=== PATIENT | female | born 1950 | race Hispanic/Latino ===

== ENCOUNTER 2016-05-15 09:23 | Outpatient (CLI) | payer OTHER ==
--- NOTE | 2016-05-15 13:07 | Mammography Report ---
BILATERAL MAMMOGRAM with CAD: HISTORY: Cancer screening. FINDINGS: There are scattered fibroglandular densities (approximately 25%-50% glandular). No mass, distortion, suspicious calcification, or skin change is seen. IMPRESSION: Negative mammogram. There is no mammographic evidence of malignancy. RECOMMENDATION: Follow-up per ACS guidelines. BI-RADS CATEGORY: 1 = Negative ACR BI-RADS MAMMOGRAPHIC CODES: 0 = Needs additional imaging evaluation; 1 = Negative; 2 = Benign; 3 = Probably benign; 4 = Suspicious; 5 = Malignant; 6 = Known biopsy-proven malignancy COMMENT: 1. Dense breast tissue, i.e., adenosis, fibrocystic changes, etc., may obscure an underlying neoplasm. 2. Approximately 10% of cancers are not detected with mammography. 3. A negative mammography report should not delay biopsy if a clinically suspicious mass is present. COMMENT: [facility] follow-up letters [facility].
== END 2016-05-15 09:24 | disposition home or self-care (01) ==
LOC: SPVWC 09:23
PROVIDERS: ATTEND Internal Medicine
DX: Z12.31 Encounter for screening mammogram for malignant neoplasm of breast (principal)
CPT/HCPCS: 77067; G0202

== ENCOUNTER 2017-08-21 06:21 | Observation (INO) | payer MEDICARE, OTHER ==
[2017-08-21] MEDS ORDERED: ECOTRIN PO ONE (07:52)
[2017-08-21] MEDS ORDERED: PLAVIX PO ONE (07:55)
[2017-08-21] MEDS ORDERED: NACL 0.9% 500 ML 500 ML ONE (07:56)
[2017-08-21] MEDS ORDERED: NACL 0.9% 500 ML 500 ML IV SCH (08:00)
[2017-08-21 08:27] LABS: Basophils % (Auto) 0.7 % (0.0-1.8); Eosinophils # (Auto) 0.1 K/mm3 (0.0-0.4); Eosinophils % (Auto) 1.2 % (0.0-4.3); Hematocrit 41.1 % (30.3-42.9); Hemoglobin 13.6 gm/dl (10.1-14.3); Lymphocytes # (Auto) 2.1 K/mm3 (1.2-5.4); Lymphocytes % (Auto) 31.2 % (13.4-35.0); Mean Corpuscular HGB Conc 33 % (30-34); Mean Corpuscular Hemoglobin 30 pg (28-32); Mean Corpuscular Volume 91 fl (79-97); Monocytes # (Auto) 0.7 K/mm3 (0.0-0.8); Monocytes % (Auto) 9.5 % (0.0-7.3); Platelet Count 191 K/mm3 (140-440); Red Blood Count 4.52 M/mm3 (3.65-5.03); Red Cell Distribution Width 13.7 % (13.2-15.2)
[2017-08-21 08:37] LABS: INR 0.92 (0.87-1.13)
[2017-08-21 08:42] LABS: BUN/Creatinine Ratio 22; Blood Urea Nitrogen 13 mg/dL (7-17); Hemolysis Index 149
[2017-08-21] MEDS ORDERED: HEPARIN/NS 5000 UNIT/500ML(CATH LAB) 1,000 ML IR ONE (09:22)
[2017-08-21] MEDS ORDERED: HEPARIN 10,000 UNITS/10 ML ONE (09:23)
[2017-08-21] MEDS ORDERED: CALAN ONE (09:23)
[2017-08-21] MEDS: SUBLIMAZE ONE ×2 (09:59→10:00)
[2017-08-21] MEDS: XYLOCAINE 2% INFILTRATI ONE ×2 (09:59→10:02)
[2017-08-21] MEDS: VERSED ONE ×2 (09:59→10:00)
[2017-08-21] MEDS: NITROGLYCERIN SYRINGE 3 ML ONE ×2 (10:05→10:28)
[2017-08-21] MEDS ORDERED: NACL 0.9% 50 ML ONE (10:15)
[2017-08-21] MEDS: ANGIOMAX IV ONE ×2 (10:22→10:25)
[2017-08-21] MEDS ORDERED: ALUM-MAG HYDROX-SIMETH 200-200-20MG/5ML ONE (10:45)
[2017-08-21] MEDS ORDERED: EFFIENT PO ONE (10:45)
[2017-08-21] MEDS ORDERED: AMBIEN PO PRN (12:04)
--- NOTE | 2017-08-21 12:52 | Cardiac Catherization Report ---
CARDIAC CATHETERIZATION REFERRING PHYSICIAN: Avery Hernández MD DATE OF SERVICE: 08/21/2017 INDICATION FOR PROCEDURE: The patient is a very pleasant 67-year-old female with a history of coronary artery disease, coronary artery bypass surgery, PCI of RCA, recurrent chest pain, abnormal stress test, optimized antianginal medications, referred for left heart catheterization. Risks, benefits, and potential alternatives were explained in length prior to obtaining informed consent. PROCEDURE IN DETAIL: The patient was brought to catheterization lab in a postabsorptive state. He was prepped and draped in sterile fashion. An 8 mL of 2% lidocaine was used to anesthetize the right groin. A standard 6-Setswana sheath was used to cannulate the right common femoral artery via modified Seldinger technique. All exchanges were performed to exchange a J-tip guidewire. JL3.5 catheter was used to engage the left main, no dampening or ventricularization. Cineangiography was performed in all projections. JR4 catheter was used to cross the aortic valve. Under fluoroscopic guidance, left ventriculography was performed in [address] [place] and [place] projections via hand injections, catheter flushed, manual pullback performed with continuous pressure monitoring. Catheter was used to engage the right coronary. No dampening or vegetations. Angiography was performed in all projections. Next, catheter was removed from the body wire. Next, a JR4 catheter was used to engage the left subclavian. Selective angiography of the ANGUIANO was performed in multiple projections. Next, catheter was removed from the left subclavian carefully over wire. I directly supervised the administration of moderate sedation from 10:00 a.m. to 10:42 a.m. DATA: Aortic pressure is 110/50, LV pressure is 110, LVEDP of 16 mmHg. Left ventriculography revealed normal systolic performance with estimated ejection fraction of 55% -60%, no aortic stenosis. CORONARY ANATOMY: This is a right dominant system. Left main is short, essentially dual ostia left circumflex is without significant disease, diminutive LAD, moderate sized vessel, courses through the anterior interventricular groove, wraps around the apex. There is a complex 90% calcific stenosis proximally, mid segment, a tubular small vessel, 80% stenosis, and a chronic total occlusion just distal to this lesion in the distal segment of the mid LAD, ANGUIANO to LAD is widely patent in the distal segment of the mid or proximal segment of the distal LAD. The right coronary is widely patent. Stent in the right coronary, the stent previously placed in the right coronary is widely patent. No obstructive disease noted. At this point, due to recurrent angina despite multiple anginal medications, apical ischemia on stress test, we proceeded with PCI of the proximal LAD. The mid and distal LAD is protected by the ANGUIANO, but the proximal LAD with its multiple diagonal tributaries are unprotected and thus is ischemic. I believe this is the culprit lesion. Angiomax was given, EBU 3.75 guide used to engage the LAD without difficulty. A [place] wire was used to cross the lesion without difficulty. Angiomax was given, abnormal ACT confirmed, Effient, aspirin. We used a 2.5 x 12 balloon to predilate the lesion. A 3.0 x 15 Resolute Integrity drug-eluting stent was placed at 12 SAY for 30 seconds, excellent angiographic result. Intravascular ultrasound was performed, multiple passes were made. Intravascular ultrasound reveals a well approached and well expanded stent. Final angiogram reveals excellent result. CONCLUSIONS: 1. Severe [place] coronary artery disease as aforementioned. 1. A 90% proximal LAD stenosis in the setting of recalcitrant chest pain despite multiple anginal medications and anterior and anterolateral ischemia on stress test. 2. Successful IVUS-guided PCI with placement of a drug-eluting stent (Resolute 3.0 x 15) with excellent final angiographic and ultrasonographic results. 3. Chronic total occlusion of the distal segment of the mid LAD. 4. Patent ANGUIANO to LAD. 5. No obstructive disease is identified in the left circumflex. 6. Patent stent in the right coronary without obstructive disease. 7. Preserved left ventricular systolic performance, estimated ejection fraction of 55-60%. 8. ____ aortic stenosis. 9. Normal LVEDP. 10. Results of the procedure were explained to the patient and family. All questions and concerns were addressed. The patient is clinically stable, chest pain free. Effient, aspirin and statin, post-sheath in 2 hours, a standard Groin care as anticipate discharge tomorrow. JOB# [id number] SBM/NTS
[2017-08-21] MEDS ORDERED: ULTRAM ONE ×2 (14:18→14:34)
[2017-08-21] MEDS ORDERED: ULTRAM PO ONE (14:32)
[2017-08-21] MEDS ORDERED: ZOFRAN IV ONE (14:32)
[2017-08-21] MEDS ORDERED: ZOFRAN ONE (14:34)
[2017-08-22 06:06] LABS: Basophils % (Auto) 0.6 % (0.0-1.8); Eosinophils # (Auto) 0.1 K/mm3 (0.0-0.4); Eosinophils % (Auto) 0.6 % (0.0-4.3); Hematocrit 40.4 % (30.3-42.9); Hemoglobin 13.7 gm/dl (10.1-14.3); Lymphocytes # (Auto) 1.9 K/mm3 (1.2-5.4); Lymphocytes % (Auto) 23.2 % (13.4-35.0); Mean Corpuscular HGB Conc 34 % (30-34); Mean Corpuscular Hemoglobin 31 pg (28-32); Mean Corpuscular Volume 91 fl (79-97); Monocytes # (Auto) 0.6 K/mm3 (0.0-0.8); Monocytes % (Auto) 7.1 % (0.0-7.3); Platelet Count 185 K/mm3 (140-440); Red Blood Count 4.42 M/mm3 (3.65-5.03); Red Cell Distribution Width 13.7 % (13.2-15.2)
[2017-08-22 06:30] LABS: Creatine Kinase MB 5.1 ng/mL (0.0-4.0)
[2017-08-22 06:32] LABS: BUN/Creatinine Ratio 16; Blood Urea Nitrogen 11 mg/dL (7-17); Calcium 9.2 mg/dL (8.4-10.2); Hemolysis Index 3
[2017-08-22 06:44] LABS: HDL Cholesterol 32 mg/dL (40-59); LDL Cholesterol,Direct 76 mg/dL (50-130)
--- NOTE | 2017-08-22 08:18 | XRay Report ---
PORTABLE CHEST INDICATION: Post PCI. COMPARISON: None similar. FINDINGS: Portable, frontal chest radiograph demonstrates normal cardiomediastinal silhouette. Clear lungs. EKG leads. Left mid clavicular possible old healed fracture. CONCLUSION: No acute chest process, as described. Thank you for the opportunity to participate in this patient's care.
[2017-08-22 09:26] VITALS: BP 135/56
[2017-08-22] MEDS ORDERED: BABY ASPIRIN PO SCH (10:00)
[2017-08-22] MEDS ORDERED: TOPROL XL PO SCH (10:00)
[2017-08-22] MEDS ORDERED: EFFIENT PO SCH (10:00)
[2017-08-22] MEDS ORDERED: IMDUR PO SCH (10:00)
--- NOTE | 2017-08-22 10:55 | Short Stay Summary ---
Short Stay Documentation Date of service: 08/22/17 - History H&P: obtained from office - Allergies and Medications Current Medications: Allergies acetaminophen [From Percocet] Allergy (Intermediate, Verified 01/13/15 11:47) Nausea oxycodone HCl [From Percocet] Allergy (Intermediate, Verified 01/13/15 11:47) Nausea codeine Allergy (Verified 01/13/15 11:47) Nausea Home Medications Medication Instructions Recorded Confirmed Last Taken Type Aspirin EC [Aspirin Enteric Coated 325 mg PO DAILY 10/08/14 08/21/17 08/20/17 History TAB] Metoprolol [Lopressor TAB] 50 mg PO BID 10/08/14 08/21/17 08/21/17 05:30 History Zolpidem [Ambien] 5 mg PO HS PRN 10/08/14 08/21/17 08/20/17 History Atorvastatin Calcium [Lipitor] 20 mg PO QHS 12/08/14 08/21/17 08/20/17 History Clopidogrel Bisulfate [Plavix] 75 mg PO DAILY 12/08/14 08/21/17 08/20/17 History ISOSORBIDE MONOnitrate [Imdur ER] 30 mg PO DAILY 08/21/17 08/21/17 08/16/17 History valACYclovir [Valtrex] 500 mg PO TID 08/21/17 08/21/17 08/20/17 History Active Medications Aspirin (Baby Aspirin) 81 mg PO QDAY DONNY Atorvastatin Calcium (Lipitor) 40 mg PO QHS [facility] Last Admin: 08/21/17 21:26 Dose: 40 mg Isosorbide Mononitrate (Imdur) 30 mg PO DAILY [facility] Metoprolol Succinate (Toprol Xl) 50 mg PO QDAY DONNY Prasugrel (Effient) 10 mg PO QDAY DONNY Zolpidem Tartrate (Ambien) 5 mg PO HS PRN PRN Reason: Insomnia Last Admin: 08/21/17 21:26 Dose: 5 mg - Physical exam General appearance: no acute distress Integumentary: no rash, no growths, no abnormal pigmentation HEENT: Atraumatic, PERRLA Lungs: Clear to auscultation Heart: Regular rate, Normal S1, Normal S2 Gastrointestinal: normal, normoactive bowel sounds Extremities: no ischemia, pulses intact, pulses symmetrical, No edema, normal temperature, normal color Neurological: Normal gait, Normal speech, Strength at 5/5 X4 ext - Brief post op/procedure progress note Date of procedure: 08/21/17 Pre-op diagnosis: CAD Post-op diagnosis: same Procedure: LHC with PCI - see dictated cath report Anesthesia: local Estimated blood loss: none Condition: stable - Hospital course Hospital course: Pt presented for scheduled elective LHC with PCI of LAD. She was admitted for observation overnight. She remained stable overnight and is medically stable for discharge home today. - Disposition Condition at discharge: Stable Disposition: DC-01 TO HOME OR SELFCARE - Discharge Diagnoses (1) CAD (coronary artery disease) Status: Chronic (2) Stented coronary artery Status: Chronic (3) Hx of CABG Status: Chronic Short Stay Discharge Plan Activity: advance as tolerated Diet: low fat, low cholesterol, low salt Wound: open to air, keep clean and dry, per your surgeon's advice Follow up with: MARGRET HASKINS MD [Primary Care Provider] - 7 Days FATOU IVEY MD [Staff Physician] - 7 Days ([facility], 08/29/2017 @ 1: 45PM) Prescriptions: AtorvaSTATin [Lipitor] 40 mg PO QHS #30 tablet Prasugrel [Effient] 10 mg PO QDAY #30 tablet
== END 2017-08-22 14:00 | disposition home or self-care (01) ==
LOC: CATHLABREC 06:21 → 4A 10:59
PROVIDERS: ADMIT Internal Medicine; ATTEND Internal Medicine
DX: I25.10 Atherosclerotic heart disease of native coronary artery without angina pectoris (principal)
CPT/HCPCS: 36415; 71045; 80048; 80061; 82550; 82553; 84484; 85025; 85347; 85610; 85730; 92978; 93005; 93010; 93458; 96374; A9270; C1725; C1753; C1769; C1874; C1887; C1894; C9600; G0378; J0583; J1644; J2250; J2405; J3010; J7040; 92928; Q9967

== ENCOUNTER 2017-08-25 22:50 | Emergency (ER) | payer MEDICARE ==
[2017-08-26 00:27] LABS: Basophils # (Auto) 0.1 K/mm3 (0.0-0.1); Basophils % (Auto) 0.7 % (0.0-1.8); Eosinophils # (Auto) 0.1 K/mm3 (0.0-0.4); Eosinophils % (Auto) 1.1 % (0.0-4.3); Hematocrit 36.4 % (30.3-42.9); Hemoglobin 12.3 gm/dl (10.1-14.3); Lymphocytes # (Auto) 2.8 K/mm3 (1.2-5.4); Mean Corpuscular HGB Conc 34 % (30-34); Mean Corpuscular Hemoglobin 31 pg (28-32); Mean Corpuscular Volume 92 fl (79-97); Monocytes # (Auto) 0.7 K/mm3 (0.0-0.8); Platelet Count 206 K/mm3 (140-440); Red Blood Count 3.97 M/mm3 (3.65-5.03); Red Cell Distribution Width 13.6 % (13.2-15.2)
[2017-08-26 01:00] LABS: BUN/Creatinine Ratio 21; Blood Urea Nitrogen 15 mg/dL (7-17); Calcium 10.2 mg/dL (8.4-10.2); Hemolysis Index 6
[2017-08-26] MEDS ORDERED: LOVENOX SUB-Q ONE (02:10)
[2017-08-26] MEDS ORDERED: ULTRAM PO ONE (02:34)
--- NOTE | 2017-08-26 02:34 | Emergency Department Report ---
HPI - General Chief Complaint: Extremity Injury, Lower Time Seen by Provider: 08/26/17 01:57 - HPI HPI: 67-year-old female presents to the emergency department with a complaint of right thigh pain that has been going on for the past 3 or 4 days since she had a cardiac catheterization done. For that they went into the right groin and she had a stent placed. She denies any numbness or restriction to range of motion but says that it feels "heavy" along with the pain which is towards the groin in the inner thigh. She denies any rash, obvious swelling. She called her white sugar pan tank operator, Dr. Cook, and was told to come to the emergency Department to rule out a DVT. She also has a past medical history of arthritis , GERD, hypertension. She tried some ibuprofen for her discomfort without much relief. ED Past Medical Hx - Past Medical History Previous Medical History?: Yes Hx Hypertension: Yes Hx Heart Attack/AMI: No Hx Congestive Heart Failure: No Hx Diabetes: No Hx GERD: Yes Hx Arthritis: Yes Hx HIV: No - Surgical History Past Surgical History?: Yes Hx Coronary Stent: Yes (x1) - Social History Smoking Status: Never Smoker Substance Use Type: None - Medications Home Medications: Home Medications Medication Instructions Recorded Confirmed Last Taken Type Zolpidem [Ambien] 5 mg PO HS PRN 10/08/14 08/21/17 08/20/17 History ISOSORBIDE MONOnitrate [Imdur ER] 30 mg PO DAILY 08/21/17 08/21/17 08/16/17 History valACYclovir [Valtrex] 500 mg PO TID 08/21/17 08/21/17 08/20/17 History Aspirin [Aspirin BABY CHEW TAB] 81 mg PO QDAY tab.chew 08/22/17 Unknown Rx AtorvaSTATin [Lipitor] 40 mg PO QHS #30 tablet 08/22/17 Unknown Rx Metoprolol Xl [Metoprolol 50 mg PO QDAY tablet 08/22/17 Unknown Rx SUCCINATE ER TAB] Prasugrel [Effient] 10 mg PO QDAY #30 tablet 08/22/17 Unknown Rx traMADol [Ultram 50 MG tab] 50 mg PO Q6HR PRN #10 tablet 08/26/17 Unknown Rx ED Review of Systems ROS: Stated complaint: LEG PAIN Other details as noted in HPI Comment: All other systems reviewed and negative Constitutional: denies: chills, fever Eyes: denies: eye pain, eye discharge, vision change ENT: denies: ear pain, throat pain Respiratory: denies: cough, shortness of breath, wheezing Cardiovascular: denies: chest pain, palpitations Gastrointestinal: denies: abdominal pain, nausea, diarrhea Genitourinary: denies: urgency, dysuria, discharge Musculoskeletal: arthralgia, myalgia Skin: denies: rash, lesions Neurological: denies: headache, weakness, paresthesias Physical Exam - Physical Exam Vital Signs: Vital Signs 08/25/17 23:18 Temperature 98.7 F Pulse Rate 76 Respiratory 14 Rate Blood Pressure 122/62 O2 Sat by Pulse 95 Oximetry Physical Exam: GENERAL: The patient is well-developed well-nourished. HENT: Normocephalic. Atraumatic. Patient has moist mucous membranes. EYES: Extraocular motions are intact. Pupils equal reactive to light bilaterally. NECK: Supple. Trachea is midline. CHEST/LUNGS: Clear to auscultation. There is no respiratory distress noted. HEART/CARDIOVASCULAR: Regular. There is no tachycardia. There is no murmur. ABDOMEN: Abdomen is soft, nontender. Patient has normal bowel sounds. There is no abdominal distention. SKIN: Skin is warm and dry. NEURO: The patient is awake, alert, and oriented. The patient is cooperative. The patient has no focal neurologic deficits. The patient has normal speech. MUSCULOSKELETAL: There is some tenderness to palpation to the left upper thigh but no obvious deformity. There is no limitation range of motion. ED Course Vital Signs 08/25/17 23:18 Temperature 98.7 F Pulse Rate 76 Respiratory 14 Rate Blood Pressure 122/62 O2 Sat by Pulse 95 Oximetry ED Medical Decision Making - Lab Data Result diagrams: 08/26/17 00:03 08/26/17 00:03 - Medical Decision Making Patient came in with a complaint of a 4-5 day history of right upper thigh pain since her cardiac catheterization was basically sent in to get a venous Doppler to rule out a DVT. However on a Sunday night we are unable to get a venous Doppler done. The labs obtained were mostly unremarkable. Vital signs stable throughout her ED course. She had a slight elevation in her potassium level and she has been encouraged to follow up for a repeat level with her primary care physician or white sugar pan tank operator. She was given a dose of Lovenox here in the emergency department and has been set up to return to the emergency department later today, Sunday, to get the venous Doppler done. If negative, she will be encouraged to follow-up with PCP and cardiology. If positive, she will be redirected to the emergency department for further anticoagulation. - Differential Diagnosis muscle spasm, groin strain, DVT, cellulitis Critical Care Time: No Critical care attestation.: If time is entered above; I have spent that time in minutes in the direct care of this critically ill patient, excluding procedure time. ED Disposition Clinical Impression: Right thigh pain, Post procedure discomfort Disposition: TO HOME OR SELFCARE Is pt being admited?: No Condition: Stable Additional Instructions: You will be contacted later today, Sunday, regarding what time to return to the hospital for your right lower extremity venous Doppler ultrasound. This ultrasound will be used to try and rule out or rule in a DVT/blood clot in the leg. If positive, he will be redirected back to the emergency department for anticoagulation. If negative, you should follow up with your primary care physician and white sugar pan tank operator. Return to the emergency department with any worsening of your symptoms or any acute distress. You have been prescribed a medication that is sedating and therefore should not be taken prior to driving, working, and responsible for children and in no way should be mixed with alcohol of any quantity. Prescriptions: traMADol [Ultram 50 MG tab] 50 mg PO Q6HR PRN #10 tablet PRN Reason: Pain Referrals: MAGRRET HASKINS MD [Primary Care Provider] - 3-5 Days ILEANA COOK MD [Staff Physician] - 3-5 Days Time of Disposition: 02:45
[2017-08-26 03:06] VITALS: BP 111/50
== END 2017-08-26 03:21 | disposition home or self-care (01) ==
LOC: ED 22:50
DX: M79.651 Pain in right thigh (principal); I10 Essential (primary) hypertension; K21.9 Gastro-esophageal reflux disease without esophagitis; M19.90 Unspecified osteoarthritis, unspecified site
CPT/HCPCS: 36415; 80048; 82550; 85025; 96372; 99283; J1650

== ENCOUNTER 2017-08-26 10:56 | Emergency (ER) | payer MEDICARE ==
[2017-08-26] MEDS ORDERED: TYLENOL PO ONE (13:59)
--- NOTE | 2017-08-26 14:17 | Emergency Department Report ---
ED Extremity Problem HPI - General Chief complaint: Extremity Problem,Nontraumatic Time Seen by Provider: 08/26/17 12:40 Source: patient Mode of arrival: Ambulatory Limitations: No Limitations - History of Present Illness Initial comments: 67-year-old woman with persistent heaviness and discomfort in her leg 5 days after having cardiac catheterization in that extremity. She was seen here earlier in the emergency department, and referred back for possible DVT. That examination was performed by duplex Doppler here, shortly prior to emergency department visit, and was referred for further evaluation after having been found to have incidental finding of an arteriovenous malformation. Exam was negative for DVT. Patient has heaviness in the extremity, but is not cool, she has been able ambulate on it, has good muscular tone. She has no other symptoms , no chest pain. Onset/Timin -: Gradual, days(s) Location: right, lower extremity History of Same: No Radiation: other (along medial proximal right leg) Severity scale (0 -10): 2 Quality: other (heaviness) Consistency: constant (heaviness) Improves with: nothing Worsens with: nothing Associated Symptoms: denies other symptoms - Related Data Home Medications Medication Instructions Recorded Confirmed Last Taken Zolpidem [Ambien] 5 mg PO HS PRN 10/08/14 08/21/17 08/20/17 ISOSORBIDE MONOnitrate [Imdur ER] 30 mg PO DAILY 08/21/17 08/21/17 08/16/17 valACYclovir [Valtrex] 500 mg PO TID 08/21/17 08/21/17 08/20/17 Previous Rx's Medication Instructions Recorded Last Taken Type Aspirin [Aspirin BABY CHEW TAB] 81 mg PO QDAY tab.chew 08/22/17 Unknown Rx AtorvaSTATin [Lipitor] 40 mg PO QHS #30 tablet 08/22/17 Unknown Rx Metoprolol Xl [Metoprolol 50 mg PO QDAY tablet 08/22/17 Unknown Rx SUCCINATE ER TAB] Prasugrel [Effient] 10 mg PO QDAY #30 tablet 08/22/17 Unknown Rx traMADol [Ultram 50 MG tab] 50 mg PO Q6HR PRN #10 tablet 08/26/17 Unknown Rx Allergies Allergy/AdvReac Type Severity Reaction Status Date / Time acetaminophen [From Percocet] Allergy Intermediate Nausea Verified 01/13/15 11: 47 oxycodone HCl [From Percocet] Allergy Intermediate Nausea Verified 01/13/15 11: 47 codeine Allergy Nausea Verified 01/13/15 11:47 ED Review of Systems ROS: Stated complaint: Other details as noted in HPI Comment: All other systems reviewed and negative ENT: denies: ear pain, throat pain Respiratory: denies: cough, shortness of breath, wheezing Cardiovascular: denies: chest pain, palpitations Gastrointestinal: denies: abdominal pain, nausea, diarrhea Musculoskeletal: denies: back pain, joint swelling, arthralgia Skin: denies: rash, lesions Neurological: denies: headache, weakness, paresthesias Psychiatric: denies: anxiety, depression Hematological/Lymphatic: denies: easy bleeding, easy bruising ED Past Medical Hx - Past Medical History Hx Hypertension: Yes Hx Heart Attack/AMI: No Hx Congestive Heart Failure: No Hx Diabetes: No Hx GERD: Yes Hx Arthritis: Yes Hx HIV: No - Surgical History Hx Coronary Stent: Yes (x2) - Social History Smoking Status: Never Smoker Substance Use Type: Alcohol - Medications Home Medications: Home Medications Medication Instructions Recorded Confirmed Last Taken Type Zolpidem [Ambien] 5 mg PO HS PRN 10/08/14 08/21/17 08/20/17 History ISOSORBIDE MONOnitrate [Imdur ER] 30 mg PO DAILY 08/21/17 08/21/17 08/16/17 History valACYclovir [Valtrex] 500 mg PO TID 08/21/17 08/21/17 08/20/17 History Aspirin [Aspirin BABY CHEW TAB] 81 mg PO QDAY tab.chew 08/22/17 Unknown Rx AtorvaSTATin [Lipitor] 40 mg PO QHS #30 tablet 08/22/17 Unknown Rx Metoprolol Xl [Metoprolol 50 mg PO QDAY tablet 08/22/17 Unknown Rx SUCCINATE ER TAB] Prasugrel [Effient] 10 mg PO QDAY #30 tablet 08/22/17 Unknown Rx traMADol [Ultram 50 MG tab] 50 mg PO Q6HR PRN #10 tablet 08/26/17 Unknown Rx ED Physical Exam - General Limitations: No Limitations General appearance: alert, in no apparent distress - Head Head exam: Present: atraumatic - Eye Eye exam: Present: PERRL, EOMI - ENT ENT exam: Present: normal exam - Neck Neck exam: Present: normal inspection, tenderness - Respiratory Respiratory exam: Present: normal lung sounds bilaterally - Cardiovascular Cardiovascular Exam: Present: regular rate, normal heart sounds - GI/Abdominal GI/Abdominal exam: Present: soft, normal bowel sounds. Absent: tenderness - Rectal Rectal exam: Present: deferred - Extremities Exam Extremities exam: Present: normal inspection, full ROM, tenderness (mild tenderness proximal medial aspect of right thigh, without edema, or ecchymosis) . Absent: pedal edema, joint swelling, calf tenderness - Neurological Exam Neurological exam: Present: alert, oriented X3, CN II-XII intact. Absent: motor sensory deficit - Psychiatric Psychiatric exam: Present: normal affect, normal mood - Skin Skin exam: Present: warm, dry. Absent: erythema, petechiae, pallor, abrasion, ecchymosis ED Course Vital Signs 08/26/17 12:19 Temperature 37.0 C Pulse Rate 64 Respiratory 18 Rate Blood Pressure 127/66 O2 Sat by Pulse 96 Oximetry - Consultations Consultation #1: 08/26/17 15:11 Dr. Garay, electroplating worker consulted, recommends admission and vascular consult , with admission through hospitalist. Consultation #2: 08/26/17 15:12 Dr. Dao consult, has come to see patient, reviewed findings, physical examination stable, and he feels patient can be evaluated on an outpatient basis. ED Medical Decision Making - Radiology Data Radiology results: report reviewed (duplex Doppler ultrasound examination of right lower extremity negative for venous thromboembolus in, but incidental note made of AVM from right superficial femoral to right greater saphenous vein. ) - Medical Decision Making Patient has unremarkable clinical examination, with normal-appearing extremity, normal strength and normal sensation, no evidence of bleeding, no swelling, contusion or mass, but with finding of AV malformation, possible fistula, an area where patient recently had catheterization. Examination by on-call hospitalist, Dr. Dao, who concurs with nocuous findings, and believe patient can be further evaluated on an outpatient basis, in the next 2-3 days. Family has been followed by vascular group, Dr. Barker, and can make arrangements to contact them. - Differential Diagnosis arteriovenous malformation, fistula, hematoma Critical Care Time: No Critical care attestation.: If time is entered above; I have spent that time in minutes in the direct care of this critically ill patient, excluding procedure time. ED Disposition Clinical Impression: Arteriovenous malformation, lower limb Disposition: DC-01 TO HOME OR SELFCARE Is pt being admited?: No Does the pt Need Aspirin: No Condition: Stable Additional Instructions: Examination today was negative for blood clots to the legs, but ultrasound examination suggest a arteriovenous malformation, or unusual connection between the arterial system and the venous system in your right leg, possibly as a result of urine catheterization. Physical examination today is stable, there is no signs of active bleeding, no mass, and evaluation by hospitalist is also negative, and we believe that you're stable for discharge home, and your findings can be evaluated on an outpatient basis with your electroplating worker, and your vascular surgeon, Dr. Barker. Contact her specialist tomorrow to make close follow-up appointment within 48- 72 hours, advising them of these findings, and need for close follow-up. You can be up and around, but recommend rest and general and limitation of activities while you are recuperating. Return to emergency department for any unusual symptoms, including increased pain, swelling of the extremity, severe coldness of extremity or loss of muscular use. Referrals: MARGRET HASKINS MD [Primary Care Provider] - 3-5 Days Time of Disposition: 15:17
[2017-08-26] MEDS ORDERED: FIORICET PO ONE (14:48)
--- NOTE | 2017-08-26 14:59 | Event Note ---
Date: 08/26/17 Patient evaluated for AVM in Rt Groin and Rt Thigh discomfort No signs of vasular insufficiency. Duplex scan reviewed. Patient has minimal symptoms and wants to follow with cardiology and Vascular surgery as outpatient Dis Dx AVM Rt Groin
[2017-08-26 15:42] VITALS: BP 105/78
--- NOTE | 2017-08-29 13:25 | Vascular Lab Report ---
Right Lower Extremity Venous Duplex Study: Reason for Exam: Pain and swelling of the right lower extremity. Comments on the Right: All veins visualized are freely compressible without evidence of internal echogenicity. Flow is spontaneous and phasic throughout. No evidence of acute or chronic thrombus is seen in any of the vessels visualized. There appears to be an arteriovenous connection between the proximal femoral arteries in the greater saphenous vein. Clinical correlation is recommended. Comments on the Left: A limited duplex study was done of the proximal veins of the left lower extremity. All veins visualized are freely compressible without evidence of internal echogenicity. Flow is spontaneous and phasic throughout. No evidence of acute or chronic thrombus is seen in any of the vessels visualized. Impression: No evidence of acute or chronic deep venous thrombosis in the right lower extremity. 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 Recommend further evaluation.
== END 2017-08-26 15:42 | disposition home or self-care (01) ==
LOC: VAS 10:56 → ED 10:56 → EDSTATUS 12:04 → ED 15:42
DX: Q27.39 Arteriovenous malformation, other site (principal); I10 Essential (primary) hypertension; K21.9 Gastro-esophageal reflux disease without esophagitis

== ENCOUNTER 2017-11-26 06:13 | Observation (INO) | payer MEDICARE ==
[2017-11-20 09:18] LABS: Basophils % (Auto) 0.7 % (0.0-1.8); Eosinophils # (Auto) 0.1 K/mm3 (0.0-0.4); Eosinophils % (Auto) 1.4 % (0.0-4.3); Hematocrit 39.2 % (30.3-42.9); Hemoglobin 13.2 gm/dl (10.1-14.3); Lymphocytes # (Auto) 1.6 K/mm3 (1.2-5.4); Lymphocytes % (Auto) 27.8 % (13.4-35.0); Mean Corpuscular HGB Conc 34 % (30-34); Mean Corpuscular Hemoglobin 30 pg (28-32); Mean Corpuscular Volume 90 fl (79-97); Monocytes # (Auto) 0.6 K/mm3 (0.0-0.8); Platelet Count 197 K/mm3 (140-440); Red Blood Count 4.34 M/mm3 (3.65-5.03); Red Cell Distribution Width 13.5 % (13.2-15.2)
[2017-11-20 09:31] LABS: BUN/Creatinine Ratio 13; Blood Urea Nitrogen 8 mg/dL (7-17); Calcium 9.5 mg/dL (8.4-10.2); Hemolysis Index 15
[2017-11-20 09:33] LABS: INR 0.95 (0.87-1.13)
--- NOTE | 2017-11-20 10:02 | Anesthesia Consultation ---
Anesthesia Consult and Med Hx Date of service: 11/20/17 - Airway Anesthetic Teeth Evaluation: Dentures (upper and lower) ROM Head & Neck: Adequate Mental/Hyoid Distance: Adequate Mallampati Class: Class II Intubation Access Assessment: Probably Good - Pre-Operative Health Status ASA Pre-Surgery Classification: ASA3 Proposed Anesthetic Plan: General - Cardiovascular System Hx Hypertension: Yes Hx Coronary Artery Disease: Yes (s/p CABG (2014)) Hx Heart Attack/AMI: No Hx Angina: No (high cholesterol) Hx Percutaneous Transluminal Coronary Angioplasty (PTCA): Yes (2014) - Central Nervous System Hx Psychiatric Problems: No - Gastrointestinal Hx Gastroesophageal Reflux Disease: Yes - Endocrine Hx Cirrhosis: Yes (liver enzymes elevated) - Other Systems Hx Cancer: Yes (skin- rt. shoulder)
[~2017-11-26 06:13] MED LIST: ANCEF/STERILE WATER 2 GM/20 ML 2 GM/20 ML SYRINGE IV NR; DILAUDID IV PRN; ZOFRAN IV PRN
[2017-11-26] MEDS: LACTATED RINGERS 1,000 ML IV SCH ×2 (06:50→21:34)
[2017-11-26] MEDS ORDERED: VERSED IV NR (07:00)
[2017-11-26] MEDS ORDERED: PEPCID IV NR (07:00)
[2017-11-26] MEDS ORDERED: DIPRIVAN 10 MG/ML IV ONE (07:34)
[2017-11-26] MEDS ORDERED: SUBLIMAZE ONE (07:36)
[2017-11-26] MEDS ORDERED: NACL ONE (07:36)
[2017-11-26] MEDS ORDERED: HEPARIN 10,000 UNITS/10 ML ONE (07:36)
[2017-11-26] MEDS ORDERED: RIFADIN ONE (07:37)
[2017-11-26] MEDS ORDERED: NACL 0.9% 500 ML 500 ML ONE (07:37)
[2017-11-26] MEDS ORDERED: MARCAINE 0.5% INFILTRATI ONE ×3 (07:40→09:10)
--- NOTE | 2017-11-26 07:40 | Anesthesia Day of Surgery ---
Anesthesia Day of Surgery - Day of Surgery Patient Examined: Yes Patient H&P Reviewed: Yes Patient is NPO: Yes Beta Blockers: Yes Cardiac Clearance: Yes (on chart with recent studies)
[2017-11-26] MEDS ORDERED: NITROGLYCERIN SYRINGE 0 ML ONE (08:10)
[2017-11-26] MEDS ORDERED: NACL 0.9% IR ONE (09:10)
[2017-11-26] MEDS ORDERED: HEPARIN 10,000 UNITS/10 ML 2,000 UNIT in NACL 0.9% 500 ML 500 ML IR ONE (10:04)
[2017-11-26] MEDS ORDERED: ZOFRAN ONE (10:41)
[2017-11-26] MEDS ORDERED: XYLOCAINE MPF 2% ONE (10:41)
[2017-11-26] MEDS ORDERED: ZEMURON IV ONE (10:41)
[2017-11-26] MEDS ORDERED: DECADRON ONE (10:41)
[2017-11-26] MEDS ORDERED: PROAIR IH ONE (10:42)
[2017-11-26] MEDS ORDERED: LACTATED RINGERS 1,000 ML ONE (10:42)
[2017-11-26] MEDS ORDERED: BLOXIVERZ ONE (11:08)
[2017-11-26] MEDS ORDERED: ROBINUL ONE (11:08)
[2017-11-26] MEDS ORDERED: AMBIEN PO PRN ×2 (11:14→22:00)
--- NOTE | 2017-11-26 11:14 | Operative Report ---
Operative Report Operative Report: Date of Procedure: 11/26/2017 Pre-operative Diagnosis: Right Femoral Arteriovenous Fistula Status Post Cardiac Cath Post-operative Diagnosis: Same Procedure(s): 1. Open Ligation of Traumatic Right Superficial Femoral Artery To Right Greater Saphenous Vein Arteriovenous Fistula Surgeon: Terry Welsh M.D. Dresser Tender: None Anesthesia: Gen. Endotracheal Anesthesia EBL: Minimal Counts: Correct Complications: None Condition: Stable Findings: There was a fistula between a branch of the right great saphenous vein and the proximal right superficial vein with an easily palpable thrill in the right common femoral vein there was no longer present after ligation of the AV fistula. Specimen: None Indication: The patient is a 67-year-old female with a history of coronary artery disease who had a cardiac cath proximally 6 months ago. She presented with complaints of leg heaviness that represented approximately one week after her initial procedure. She was diagnosed with a arteriovenous fistula on ultrasound. The initial management was conservative with observation in hopes that the fistula would spontaneously thrombose however after 6 months the fistula was still present so the decision was made to perform open ligation of the fistula. The patient was given the risk, benefits, and alternative procedures and consented to the procedure. Description of Procedure: The patient was brought into the operating room and laid in supine position. After general endotracheal anesthesia was achieved she was prepped and draped in normal sterile fashion. A longitudinal incision was created in the groin and carried down to the abdominal wall under sharp dissection. The common femoral artery was dissected out circumferentially and then controlled with Vesseloops. The dissection was carried down to the bifurcation of the SFA and profunda artery and at this point, the significant amount of scar tissue. It became obvious that this was the area of the likely AV fistula. I dissected the proximal profunda circumferentially and controlled this with a vessel loop. I then dissected out the SFA distal to this area of scar tissue and controlled with a vessel loop. I then systemically heparinized the patient with 3000 units of heparin IV. I then began to dissect the scar tissue until I was able to dissect out the branch of the saphenous vein down to the area of the connection. Once I was able to do this I released the vessel loops on tension to control flow within the artery and then clamped the vein on the venous side and ligated the fistula. I tied off the venous portion of the fistula with a 2-0 silk stitch. I then examined the arteriotomy which was approximately a 3 mm hole in the artery. I flushed out the arteriotomy with heparinized saline. I did leave a small cuff of the fistula to assist with the closure. I closed the arteriotomy using 6-0 Prolene in interrupted fashion. Prior to closing the arteriotomy I backbled the SFA as well as the profunda and allowed antegrade bleeding of the common femoral artery to flush any debris from the arteries. I then flushed the arteriotomy with heparinized saline. I then completed the closure of the arteriotomy and released all vessel loops to allow flow into the lower leg. The SFA had a palpable pulse distal to the closure. I interrogated the common femoral vein with a Doppler as well as palpation and it was no evidence of a thrill or bruit however it did augment with compression of the thigh. Hemostasis within the wound was achieved with a combination of quick clot and FloSeal. Once hemostasis was achieved the wound was anesthetized with 0.5% Marcaine and closed in 3 layers using a 3-0 Vicryl in running fashion to reapproximate the fascia, 3-0 Vicryl in running fashion the deep dermal layer, and 4-0 Monocryl in running fashion the subcuticular layer. Dermabond was then used to cover the skin. The patient tolerated the procedure well. All sponge, needle, and instrument counts were correct. The patient was taken to the recovery area in stable condition.
[2017-11-26] MEDS ORDERED: ZOFRAN IV PRN (11:15)
[2017-11-26] MEDS ORDERED: MORPHINE IV PRN (11:15)
[2017-11-26] MEDS ORDERED: SODIUM CHLORIDE FLUSH SYRINGE 10 ML IV PRN (11:15)
[2017-11-26] MEDS: ANCEF/NS 1 GM/50 ML 1 GM/50 ML BAG IV SCH ×2 (15:05→23:18)
--- NOTE | 2017-11-26 15:24 | Post Anesthesia Evaluation ---
- Post Anesthesia Evaluation Patient Participated: Yes Airway Patent: Yes Stable Respiratory Function: Yes Nausea/Vomiting: No Temp > 96.8F: Yes Pain Manageable: Yes Adequeate Hydration: Yes Anesthesia Complications: No
[2017-11-26] MEDS: NORCO 5/325 PO PRN (16:05)
[2017-11-26] MEDS: SODIUM CHLORIDE FLUSH SYRINGE 10 ML IV SCH (21:34)
[2017-11-27] MEDS: NORCO 5/325 PO PRN (08:08)
[2017-11-27] MEDS: LACTATED RINGERS 1,000 ML IV SCH (08:08)
[2017-11-27] MEDS ORDERED: EFFIENT PO SCH (10:00)
[2017-11-27] MEDS ORDERED: BABY ASPIRIN PO SCH (10:00)
[2017-11-27] MEDS ORDERED: PROTONIX PO SCH (10:00)
[2017-11-27] MEDS ORDERED: TOPROL XL PO SCH (10:00)
[2017-11-27] MEDS ORDERED: IMDUR PO SCH (10:00)
[2017-11-27] MEDS: SODIUM CHLORIDE FLUSH SYRINGE 10 ML IV SCH (10:19)
[2017-11-27 10:47] VITALS: BP 134/71
--- NOTE | 2017-11-27 11:20 | Short Stay Summary ---
Short Stay Documentation - History H&P: obtained from office - Allergies and Medications Current Medications: Allergies acetaminophen [From Percocet] Allergy (Intermediate, Verified 11/16/17 12:56) Nausea oxycodone HCl [From Percocet] Allergy (Intermediate, Verified 11/16/17 12:56) Nausea codeine Allergy (Verified 11/16/17 12:56) Nausea Home Medications Medication Instructions Recorded Confirmed Last Taken Type Zolpidem [Ambien] 5 mg PO HS PRN 10/08/14 11/26/17 11/25/17 History ISOSORBIDE MONOnitrate [Imdur ER] 30 mg PO DAILY 08/21/17 11/26/17 11/26/17 History Aspirin [Aspirin BABY CHEW TAB] 81 mg PO QDAY tab.chew 08/22/17 11/26/17 Rx AtorvaSTATin [Lipitor] 40 mg PO QHS #30 tablet 08/22/17 11/26/17 11/19/17 Rx Metoprolol Xl [Metoprolol 50 mg PO QDAY tablet 08/22/17 11/26/17 11/26/17 Rx SUCCINATE ER TAB] Prasugrel [Effient] 10 mg PO QDAY #30 tablet 08/22/17 11/26/17 11/26/17 Rx Pantoprazole [Protonix] 40 mg PO QDAY 11/16/17 11/26/17 11/26/17 History HYDROcodone/APAP 5-325 [[place] 1 each PO Q4HR PRN #40 tablet 11/27/17 Unknown Rx 5/325] Active Medications Acetaminophen/Hydrocodone Bitart ([place] 5/325) 1 each PO Q6H PRN PRN Reason: Pain, Moderate (4-6) Last Admin: 11/27/17 08:08 Dose: 1 each Aspirin (Baby Aspirin) 81 mg PO QDAY [facility] Last Admin: 11/27/17 10:18 Dose: 81 mg Atorvastatin Calcium (Lipitor) 40 mg PO QHS [facility] Last Admin: 11/26/17 21:33 Dose: 40 mg Hydromorphone HCl (Dilaudid) 0.5 mg IV Q10MIN PRN PRN Reason: Pain , Severe (7-10) Lactated Ringer's (Lactated Ringers) 1,000 mls @ 100 mls/hr IV DIRECT [facility] Last Admin: 11/27/17 08:08 Dose: 100 mls/hr Isosorbide Mononitrate (Imdur) 30 mg PO DAILY [facility] Last Admin: 11/27/17 10:19 Dose: 30 mg Metoprolol Succinate (Toprol Xl) 50 mg PO QDAY [facility] Last Admin: 11/27/17 10:19 Dose: 50 mg Morphine Sulfate (Morphine) 4 mg IV Q4H PRN PRN Reason: Pain, Moderate (4-6) Ondansetron HCl (Zofran) 4 mg IV Q8H PRN PRN Reason: Nausea And Vomiting Pantoprazole Sodium (Protonix) 40 mg PO QDAY [facility] Last Admin: 11/27/17 10:19 Dose: 40 mg Prasugrel (Effient) 10 mg PO QDAY [facility] Last Admin: 11/27/17 10:18 Dose: 10 mg Sodium Chloride (Sodium Chloride Flush Syringe 10 Ml) 10 ml IV BID [facility] Last Admin: 11/27/17 10:19 Dose: 10 ml Sodium Chloride (Sodium Chloride Flush Syringe 10 Ml) 10 ml IV PRN PRN PRN Reason: LINE FLUSH Zolpidem Tartrate (Ambien) 5 mg PO QHS PRN PRN Reason: Insomnia - Physical exam General appearance: no acute distress HEENT: Atraumatic, EOMI Lungs: Normal air movement Extremities: normal temperature, abnormal (right groin incision intact without erythema or drainage. Mod ecchymosis.) Neurological: Other (no focal deficits appreciated.) - Brief post op/procedure progress note Procedure: Operative Report Operative Report: Date of Procedure: 11/26/2017 Pre-operative Diagnosis: Right Femoral Arteriovenous Fistula Status Post Cardiac Cath Post-operative Diagnosis: Same Procedure(s): 1. Open Ligation of Traumatic Right Superficial Femoral Artery To Right Greater Saphenous Vein Arteriovenous Fistula Surgeon: Terry Welsh M.D. Apparel Cutter: None Anesthesia: Gen. Endotracheal Anesthesia EBL: Minimal Counts: Correct Complications: None Condition: Stable Findings: There was a fistula between a branch of the right great saphenous vein and the proximal right superficial vein with an easily palpable thrill in the right common femoral vein there was no longer present after ligation of the AV fistula. Specimen: None Indication: The patient is a 67-year-old female with a history of coronary artery disease who had a cardiac cath proximally 6 months ago. She presented with complaints of leg heaviness that represented approximately one week after her initial procedure. She was diagnosed with a arteriovenous fistula on ultrasound. The initial management was conservative with observation in hopes that the fistula would spontaneously thrombose however after 6 months the fistula was still present so the decision was made to perform open ligation of the fistula. The patient was given the risk, benefits, and alternative procedures and consented to the procedure. - Hospital course Hospital course: Pt admitted and taken to the OR where the above stated surgery was completed without issue. Post-operatively she was transferred to [facility]. IVFs and O2 supplementation stopped. Her activities are to be increased. If tolerated then she will be able to be d/c'd later today. Pain tolerable with oral analgesics. D /c instructions given at the bedside. - Disposition Disposition: DC- TO HOME OR SELFCARE - Discharge Diagnoses (1) Right femoral arteriovenous fistula Status: Acute Short Stay Discharge Plan Activity: advance as tolerated Weight Bearing Status: Weight Bear as Tolerated Diet: regular Wound: keep clean and dry Follow up with: TERRY WELSH MD [Staff Physician] - 14 Days Prescriptions: HYDROcodone/APAP 5-325 [[place] 5/325] 1 each PO Q4HR PRN #40 tablet PRN Reason: Pain
== END 2017-11-27 14:58 | disposition home or self-care (01) ==
LOC: OR 06:13 → INTOOBSV 12:15 → 4A 12:15
PROVIDERS: ADMIT Surgery Vascular Surgery; ATTEND Surgery Vascular Surgery
DX: Q27.32 Arteriovenous malformation of vessel of lower limb (principal); I25.10 Atherosclerotic heart disease of native coronary artery without angina pectoris; I10 Essential (primary) hypertension; K74.60 Unspecified cirrhosis of liver; K21.9 Gastro-esophageal reflux disease without esophagitis; I73.9 Peripheral vascular disease, unspecified; Z95.5 Presence of coronary angioplasty implant and graft; Z85.828 Personal history of other malignant neoplasm of skin; Z95.1 Presence of aortocoronary bypass graft
CPT/HCPCS: 36415; 37607; 80048; 85025; 85610; 96365; 96375; A9270; G0378; J0690; J1100; J1644; J2250; J2405; J2704; J2710; J3010; J7040; J7120; J3490